=== PATIENT | female | born 2000 | race Caucasian/White ===

== ENCOUNTER 2019-11-20 09:33 | Inpatient (IN) ==
[2019-11-20] MEDS ORDERED: KETOROLAC TROMETHAMINE 15 MG/ML VIAL IV STA (09:44)
[2019-11-20] MEDS ORDERED: SODIUM CHLORIDE 0.9% 1000ML 1,000 ML IV SCH ×2 (09:45→11:15)
[2019-11-20] MEDS ORDERED: PROCHLORPERAZINE 1 ML IV ONE (09:49)
[2019-11-20] MEDS ORDERED: DiphenhydrAMINE HCL 50 MG/ML VIAL IV STA (09:49)
--- NOTE | 2019-11-20 09:56 | Emergency Department Note ---
History of Present Illness General Chief complaint: Headache Stated complaint: HEADACHE Time Seen by Provider: 11/20/19 09:42 History of Present Illness Maximum Pain Intensity: 5 This is a 19-year-old female that presents to the emergency department via private vehicle with complaints of "headache". The patient states that while at work on Sunday she began with a headache. No reported trauma or injury. She then has been sleeping for many parts of the day. There is associated phot ophobia. She has decreased appetite. She also had left-sided flank pain which resolved. She has associated nausea. She denies any pertinent past medical history, surgeries, allergies, trauma, injury, vomiting, chest pain, shortness of breath, fevers. No chills. She had Aleve last night but only took her control today. Discomfort is a 5/10. No dysuria, hematuria or urinary frequency. Home Medications Home Medications Medication Instructions Recorded Confirmed Type Control 1 tab PO QAM 11/20/19 11/20/19 History naproxen sodium [Aleve] 220 mg PO Q12H PRN 11/20/19 11/20/19 History Allergies Allergy/AdvReac Type Severity Reaction Status Date / Time No Known Allergies Allergy Unknown Verified 11/20/19 10:09 LACTOSE FREE FORMULA Allergy Unknown Unknown Uncoded 11/20/19 10:09 Past Med/Surg History Medical History (Updated 11/20/19 @ 15:06 by Wes Christina PA-C) Asthma No pertinent past medical history Surgical History No pertinent past surgical history Social History Preferred Language: Maltese Communication Ability: Effective Herbologist Required: No Beliefs That Will Affect Care: None Current Living Situation: Alone Other Information That Helps Us Care for You: No Feels Safe at Home: Yes Safety Concerns: Feels Safe At This Time Smoking Status: Never smoker Do You Dip or Chew Tobacco: No ; Second Hand Exposure: No ; Tobacco Cessation Education Requested by Patient: No Hx Alcohol Use: No Hx Substance Use: No Review of Systems A total of 10 systems reviewed and were otherwise negative Physical Exam Vital Signs Vital Signs - 24 hr 11/20/19 09:36 11/20/19 11:49 11/20/19 13:10 Temperature 37.2 C Temperature Source Oral Pulse Rate 126 H Pulse Rate [Right Finger] 99 H 97 H Respiratory Rate 18 18 18 Respiratory Effort / Characteristics Non-Labored Spontaneous Non-Labored Spontaneous Respiratory Depth Normal Normal Respiratory Pattern Regular Regular Blood Pressure 120/84 Blood Pressure [Right Arm] 126/81 101/76 Blood Pressure Mean 96 Blood Pressure Mean [Right Arm] 96 84 Pulse Oximetry 96 98 99 Oxygen Delivery Method Room Air Room Air Room Air Sepsis Recent Fever Within 48 Hours No Sepsis New/Unexplained Change in Mental Status No Sepsis Action Taken by Nursing No Action Required VITAL SIGNS - Vital signs and nursing notes were reviewed. Stable and afebrile. She is tachycardic on exam. GENERAL -19-year-old female appearing her stated age who is in no acute di stress. Communicates well with provider and answers questions appropriately. SKIN - Without rashes. HEAD - NC/AT. EYES - PERRL with EOMI bilaterally. Sclera anicteric. Palpebral conjunctiva pink and moist with no injection noted. She is wearing sunglasses. EARS - No deformities of external structures noted on gross examination bilaterally. No pain elicited with palpation of the tragus bilaterally. External auditory canals without discharge or otorrhea. Tympanic membranes pearly baer without retraction or bulging. No fluid or purulent material visualized behind the TM. Handle of malleus, umbo, cone of light, pars tensa/flaccid all easily visualized. NOSE - Midline and without cyanosis. No epistaxis or purulent drainage noted. Septum midline without deviation or septal hematoma noted. MOUTH/OROPHARYNX - Without perioral cyanosis. Buccal mucosa pink and moist and without leukoplakia. Tongue midline with equal elevation of palate bilaterally. No tonsillar hypertrophy, erythema, or exudates noted. Good dentition noted. NECK - Neck with FROM. Supple to palpation. No lymphadenopathy noted. No nuchal rigidity. No meningismus. LUNGS - Chest wall symmetric without accessory muscle use, intercostals retractions, or central cyanosis. Normal vesicular breath sounds CTA B/L. No wheezes, rales, or rhonchi appreciated. CARDIAC -tachycardic and irregular rate with S1/S2. No murmur, rubs, or gallops appreciated. No CVA tenderness. EXTREMITIES - No clubbing or peripheral cyanosis. No pretibial edema present. +5/5 strength noted in UE/LE bilaterally. NEUROLOGIC - Cranial nerves II through XII grossly intact. Sensory intact to light touch throughout. PSYCH - A&Ox3 and cooperates fully with examiner. Pt is very pleasant and interacts well with examiner. Course Administered Medications Discontinued Medications Diphenhydramine HCl (Benadryl) 25 mg IV NOW STA Stop: 11/20/19 09:50 Last Admin: 11/20/19 10:18 Dose: 25 mg Documented by: [id number] Sodium Chloride (Nss 1000ml) 1,000 mls @ 999 mls/hr IV .Q1H1M CORY Stop: 11/20/19 10:45 Last Infusion: 11/20/19 11:28 Dose: 0 mls/hr Documented by: [id number] Admin: 11/20/19 10:17 Dose: 999 mls/hr Documented by: [id number] Prochlorperazine (Compazine) 1 mls @ 1 mls/min IV ONE ONE Stop: 11/20/19 09:50 Last Admin: 11/20/19 10:21 Dose: 1 mls/min Documented by: [id number] Sodium Chloride (Nss 1000ml) 1,000 mls @ 999 mls/hr IV .Q1H1M CORY Stop: 11/20/19 12:15 Last Infusion: 11/20/19 13:06 Dose: 0 mls/hr Documented by: [id number] Admin: 11/20/19 11:48 Dose: 999 mls/hr Documented by: [id number] Ceftriaxone Sodium (Rocephin) 2,000 mg in 70 mls @ 140 mls/hr IV NOW STA Stop: 11/20/19 11:47 Last Infusion: 11/20/19 12:22 Dose: 0 mls/hr Documented by: [id number] Admin: 11/20/19 11:48 Dose: 140 mls/hr Documented by: [id number] Ioversol (Optiray 320 100ml) 94 ml IV ONCE PRN PRN Reason: Interaction Checking Stop: 11/24/19 10:46 Last Admin: 11/20/19 10:48 Dose: 94 ml Documented by: [id number] Ketorolac Tromethamine (Toradol) 15 mg IV NOW STA Stop: 11/20/19 09:45 Last Admin: 11/20/19 10:20 Dose: 15 mg Documented by: [id number] Medical Decision Making Laboratory Data Result diagrams: 11/20/19 10:03 11/20/19 10:03 Lab Results 11/20/19 11/20/19 11/20/19 Range/Units 10:03 10:03 10:03 WBC 23.01 H (4.8-10.8) K/uL RBC 4.48 (4.2-5.4) M/uL Hgb 14.4 (12.0-16.0) g/dL Hct 41.3 (37-47) % MCV 92.2 (80-100) fL MCH 32.1 (25-34) pg MCHC 34.9 (32-36) g/dL RDW Std Deviation 42.1 (36.4-46.3) fL RDW Coeff of Anastasia 12.4 (11.5-14.5) % Plt Count 275 (130-400) K/uL MPV 10.1 (7.4-10.4) fL Immature Gran % (Auto) 0.3 % Neut % (Auto) 77.7 % Lymph % (Auto) 9.9 % [place] % (Auto) 12.0 % Eos % (Auto) 0.0 % Baso % (Auto) 0.1 % Immature Gran # (Auto) 0.07 H (0.00-0.02) K/uL Neut # (Auto) 17.86 H (1.4-6.5) K/uL Lymph # (Auto) 2.28 (1.2-3.4) K/uL [place] # (Auto) 2.76 H (0.11-0.59) K/uL Eos # (Auto) 0.01 (0-0.5) K/uL Baso # (Auto) 0.03 (0-0.2) K/uL Sodium 135 L (136-145) mmol/L Potassium 3.4 L (3.5-5.1) mmol/L Chloride 104 (98-107) mmol/L Carbon Dioxide 25 (21-32) mmol/L Anion Gap 6.0 (3-11) BUN 5 L (7-18) mg/dl Creatinine 0.83 (0.6-1.2) mg/dl Est Cr Clr Drug Dosing 101.7 ml/min Est GFR ( Amer) 116.8 Est GFR (Non-Af Amer) 100.8 BUN/Creatinine Ratio 6.3 L (10-20) Glucose 143 H (70-99) mg/dl Calcium 9.0 (8.5-10.1) mg/dl Total Bilirubin 1.6 H (0.2-1) mg/dl AST 15 (15-37) U/L ALT 21 (12-78) U/L Alkaline Phosphatase 88 (45-117) U/L Total Protein 8.1 (6.4-8.2) gm/dl Albumin 3.8 (3.4-5.0) gm/dl Globulin 4.3 H (2.5-4.0) gm/dl Albumin/Globulin Ratio 0.9 (0.9-2) Urine Color Urine Appearance (Clear) Urine pH (4.5-7.5) Ur Specific [place] (1.000-1.030) Urine Protein (Negative) Urine Glucose (UA) (Negative) Urine Ketones (Negative) Urine Blood (Negative) Urine Nitrite (Negative) Urine Bilirubin (Negative) Urine Urobilinogen (Negative) Ur Leukocyte Esterase (Negative) Urine WBC (Auto) (0-5) /hpf Urine RBC (Auto) (0-4) /hpf U Hyaline Cast (Auto) (0-5) /lpf U Epithel Cells (Auto) (0-5) /lpf Urine Bacteria (Auto) (Negative) POC Ur Test (NEG) Lyme Disease IgG Ab Negative (Negative) Lyme Disease IgM Ab Negative (Negative) Monoscreen Negative (Negative) Influenza Type A (PCR) (Neg) Influenza Type B (PCR) (Neg) 11/20/19 11/20/19 11/20/19 Range/Units 10:03 10:03 10:03 WBC (4.8-10.8) K/uL RBC (4.2-5.4) M/uL Hgb (12.0-16.0) g/dL Hct (37-47) % MCV (80-100) fL MCH (25-34) pg MCHC (32-36) g/dL RDW Std Deviation (36.4-46.3) fL RDW Coeff of Anastasia (11.5-14.5) % Plt Count (130-400) K/uL MPV (7.4-10.4) fL Immature Gran % (Auto) % Neut % (Auto) % Lymph % (Auto) % [place] % (Auto) % Eos % (Auto) % Baso % (Auto) % Immature Gran # (Auto) (0.00-0.02) K/uL Neut # (Auto) (1.4-6.5) K/uL Lymph # (Auto) (1.2-3.4) K/uL [place] # (Auto) (0.11-0.59) K/uL Eos # (Auto) (0-0.5) K/uL Baso # (Auto) (0-0.2) K/uL Sodium (136-145) mmol/L Potassium (3.5-5.1) mmol/L Chloride (98-107) mmol/L Carbon Dioxide (21-32) mmol/L Anion Gap (3-11) BUN (7-18) mg/dl Creatinine (0.6-1.2) mg/dl Est Cr Clr Drug Dosing ml/min Est GFR ( Amer) Est GFR (Non-Af Amer) BUN/Creatinine Ratio (10-20) Glucose (70-99) mg/dl Calcium (8.5-10.1) mg/dl Total Bilirubin (0.2-1) mg/dl AST (15-37) U/L ALT (12-78) U/L Alkaline Phosphatase (45-117) U/L Total Protein (6.4-8.2) gm/dl Albumin (3.4-5.0) gm/dl Globulin (2.5-4.0) gm/dl Albumin/Globulin Ratio (0.9-2) Urine Color [place] Urine Appearance Turbid A (Clear) Urine pH 6.0 (4.5-7.5) Ur Specific [place] 1.021 (1.000-1.030) Urine Protein 1+ H (Negative) Urine Glucose (UA) Negative (Negative) Urine Ketones 2+ H (Negative) Urine Blood Trace H (Negative) Urine Nitrite Positive A (Negative) Urine Bilirubin Negative (Negative) Urine Urobilinogen Positive H (Negative) Ur Leukocyte Esterase 3+ H (Negative) Urine WBC (Auto) >30 H (0-5) /hpf Urine RBC (Auto) 5-10 H (0-4) /hpf U Hyaline Cast (Auto) 1-5 (0-5) /lpf U Epithel Cells (Auto) >30 H (0-5) /lpf Urine Bacteria (Auto) 2+ H (Negative) POC Ur Test NEG (NEG) Lyme Disease IgG Ab (Negative) Lyme Disease IgM Ab (Negative) Monoscreen (Negative) Influenza Type A (PCR) Neg for Influ A (Neg) Influenza Type B (PCR) Neg for Influ B (Neg) Imaging Data Radiologist's Impression: CT head/brain wo con CT DOSE: 638.56 mGycm HISTORY: headache x 3 days, photophobia TECHNIQUE: Multiaxial CT images of the head were performed without the use of intravenous contrast. A dose lowering technique was utilized adhering to the principles of ALARA. Comparison: None. Findings: The paranasal sinuses and mastoid air cells are clear. The calvarium and skull base are intact. The ventricles and sulci are within normal limits. There is no mass, hematoma, midline shift, or acute infarct. Impression: No acute intracranial abnormality. ACT 112: Negative or not required by law. The above report was generated using voice recognition software. It may contain grammatical, syntax or spelling errors. Electronically signed by: Aj Alvarez M.D. 11/20/2019 11:[address] OF THE ABDOMEN AND PELVIS WITH CONTRAST CLINICAL HISTORY: Left flank pain, uti, tachycardia. COMPARISON STUDY: CT of the abdomen and pelvis January 02, 2019. TECHNIQUE: Following IV administration of 94 mL of Optiray-320, axial images of the abdomen and pelvis were obtained from the lung bases to the proximal femurs. Images were reviewed in the axial, sagittal, and coronal planes. IV contrast was administered without complication. Automated exposure control was utilized for the study. A dose lowering technique was utilized adhering to the principles of ALARA. CT DOSE: 633.87 mGycm FINDINGS: Lung bases are unremarkable. No pneumatosis, free air or portal venous gas is present. Note is made of a 2.7 cm ill-defined hypodense focus within the upper pole of the left kidney with mild adjacent infiltration. There is no rim enhancement. There is no hydronephrosis. No urinary calculi are identified. There is no evidence for a bowel obstruction. The liver, spleen, adrenal glands, right kidney and pancreas are normal. A uterine anomaly is suspected, suboptimally assessed by CT. There is a probable bicornuate uterus with left- sided rudimentary horn. IMPRESSION: 1. 2.7 cm ill-defined hypodense focus within the upper pole of the left kidney consistent with pyelonephritis with lobar nephronia. No renal abscess. 2. Suspected uterine anomaly. The findings suggest a bicornuate uterus with left-sided rudimentary horn. ACT 112: Negative or not required by law. Electronically signed by: Osiel Musa M.D. 11/20/2019 11:16 AM MDM Narrative Patient was seen and evaluated as above in room a 12. Review was performed of nursing notes and vital signs. After obtaining a thorough history and physical examination the above work up was performed. She presents to us today with a headache. With the headache, she also had left flank pain for very short period of time 3 days ago but now just a headache. No urinary symptoms. With her presentation it was felt that further evaluation was warranted. A CT scan was obtained of the head which was negative. Labs were also drawn. There is leukocytosis of 23.01 without anemia. There is mild hypokalemia. T bili 1.6. Urinalysis is concerning we positive for UTI. Lyme, mono and flu swab were all negative. At the patient was done a CT scan, the urine resulted and although she had no urinary symptoms, given the reported history of a short period of flank pain 3 days ago on the left it was felt that an abdomen pelvis contrasted CT was warranted. Patient was okay with this order. This revealed a 2.7 cm ill-defined hypodense focus within the upper pole of the left kidney consistent with pyelonephritis with lobar nephronia. No abscess at this time. With this finding, 2 g Rocephin as well as fluids were ordered. While here she was treated with a migraine cocktail prior to the results with tremendous improvement. Given the patient's presentation with elevated heart rate, significant white blood cell count pyelonephritis with nephronia it was felt that further evaluation and management in the inpatient setting would be warranted. Case discussed with the attending physician as well as the hospitalist. Please refer to further documentation regarding her stay. I do not believe that an LP at this time is warranted. I do not suspect meningitis or encephalitis rather believe the headache is likely secondary to dehydration and infection from the pyelonephritis. Case was discussed with the attending physician. GCS 15. In the evaluation and treatment of this patient, the following differential diagnoses were considered: Kidney Stone, STI, pyelonephritis, UTI, meningitis, encephalitis, bladder Cancer, Amongst Others. Impression & Plan Pyelonephritis, Headache Discharge Plan Visit Data *Final* Discharge Date/Time: 11/20/19 14:34 Chief Complaint: Headache Stated Complaint: HEADACHE ED Provider: Cuauhtemoc Rondon ED Midlevel Provider: Wes Christina Discharge Problem: Pyelonephritis, Headache Patient Disposition: Admitted As Inpatient Condition: Good Discharge Instructions Interventions: ED Discharge Assessment Last Done: 11/20/19 14:34
[2019-11-20 10:20] LABS: Appearance Urine Turbid (Clear); Bacteria Urine Automated 2+ (Negative); Blood Urine Trace (Negative); Color Urine Orange; Epithelial Cell Urine Auto >30 /lpf (0-5); Glucose Urine UA Negative (Negative); Ketones Urine 2+ (Negative); Leukocyte Esterase Urine 3+ (Negative); Nitrite Urine Positive (Negative); Protein Urine 1+ (Negative); Specific Gravity Urine 1.021 (1.000-1.030); Urobilinogen Urine Positive (Negative); WBC Urine Automated >30 /hpf (0-5)
[2019-11-20 10:29] LABS: Basophils # (auto) 0.03 K/uL (0-0.2); Basophils % (auto) 0.1 %; Eosinophils # (auto) 0.01 K/uL (0-0.5); Hematocrit (blood only) 41.3 % (37-47); Hemoglobin 14.4 g/dL (12.0-16.0); Immature Granulocytes # (auto) 0.07 K/uL (0.00-0.02); Immature Granulocytes % (auto) 0.3 %; Lymphocytes # (auto) 2.28 K/uL (1.2-3.4); Lymphocytes % (auto) 9.9 %; Mean Corpuscular Hemoglobin 32.1 pg (25-34); Mean Corpuscular Hgb Conc 34.9 g/dL (32-36); Mean Corpuscular Volume 92.2 fL (80-100); Mean Platelet Volume 10.1 fL (7.4-10.4); Monocytes # (auto) 2.76 K/uL (0.11-0.59); Neutrophils # (auto) 17.86 K/uL (1.4-6.5); Neutrophils % (auto) 77.7 %; Platelet Count 275 K/uL (130-400); RDW Coefficient of Variation 12.4 % (11.5-14.5); RDW Standard Deviation 42.1 fL (36.4-46.3); Red Blood Count 4.48 M/uL (4.2-5.4); White Blood Count 23.01 K/uL (4.8-10.8)
[2019-11-20 10:30] LABS: Monotest Negative (Negative)
[2019-11-20 10:32] LABS: Albumin Level 3.8 gm/dl (3.4-5.0); BUN Creatinine Ratio 6.3 (10-20); Creatinine Clr Calc Pharmacy 101.7 ml/min; Est GFR (African American) 116.8; Est GFR (Non-African American) 100.8; Potassium 3.4 mmol/L (3.5-5.1)
[2019-11-20 10:35] LABS: Albumin Globulin Ratio 0.9 (0.9-2); Bilirubin,Total 1.6 mg/dl (0.2-1); Globulin 4.3 gm/dl (2.5-4.0); Total Protein 8.1 gm/dl (6.4-8.2)
[2019-11-20 10:39] LABS: Bilirubin Urine Negative (Negative); Ictotest Urine Negative (Negative)
[2019-11-20] MEDS ORDERED: IOVERSOL 100ml IV PRN (10:47)
[2019-11-20 11:00] LABS: Lyme Ab IgM w/WB Rflx Negative (Negative)
[2019-11-20 11:01] LABS: Lyme Ab IgG w/WB Rflx Negative (Negative)
[2019-11-20 11:04] LABS: Influenza A virus by PCR Neg for Influ A (Neg); Influenza B virus by PCR Neg for Influ B (Neg)
--- NOTE | 2019-11-20 11:06 | CT Scan Report ---
CT head/brain wo con CT DOSE: 638.56 mGycm HISTORY: headache x 3 days, photophobia TECHNIQUE: Multiaxial CT images of the head were performed without the use of intravenous contrast. A dose lowering technique was utilized adhering to the principles of ALARA. Comparison: None. Findings: The paranasal sinuses and mastoid air cells are clear. The calvarium and skull base are int act. The ventricles and sulci are within normal limits. There is no mass, hematoma, midline shift, or acute infarct. Impression: No acute intracranial abnormality. ACT 112: Negative or not required by law. The above report was generated using voice recognition software. It may contain grammatical, syntax or spelling errors. Electronically signed by: Aj Alvarez M.D. 11/20/2019 11:05 AM
--- NOTE | 2019-11-20 11:17 | CT Scan Report ---
CT OF THE ABDOMEN AND PELVIS WITH CONTRAST CLINICAL HISTORY: Left flank pain, uti, tachycardia. COMPARISON STUDY: CT of the abdomen and pelvis January 02, 2019. TECHNIQUE: Following IV administration of 94 mL of Optiray-320, axial images of the abdomen and pelvi s were obtained from the lung bases to the proximal femurs. Images were reviewed in the axial, sagitt al, and coronal planes. IV contrast was administered without complication. Automated exposure contro l was utilized for the study. A dose lowering technique was utilized adhering to the principles of A [place]. CT DOSE: 633.87 mGycm FINDINGS: Lung bases are unremarkable. No pneumatosis, free air or portal venous gas is present. Note is made of a 2.7 cm ill-defined hypodense focus within the upper pole of the left kidney with mild a djacent infiltration. There is no rim enhancement. There is no hydronephrosis. No urinary calculi are identified. There is no evidence for a bowel obstruction. The liver, spleen, adrenal glands, right k idney and pancreas are normal. A uterine anomaly is suspected, suboptimally assessed by CT. There is a probable bicornuate uterus with left-sided rudimentary horn. IMPRESSION: 1. 2.7 cm ill-defined hypodense focus within the upper pole of the left kidney consistent with pyelon ephritis with lobar nephronia. No renal abscess. 2. Suspected uterine anomaly. The findings suggest a bicornuate uterus with left-sided rudimentary ho rn. ACT 112: Negative or not required by law. Electronically signed by: Osiel Musa M.D. 11/20/2019 11:16 AM
[2019-11-20] MEDS ORDERED: cefTRIAXone SODIUM 2,000 MG/70 ML BAG IV STA (11:18)
--- NOTE | 2019-11-20 14:02 | History & Physical Report ---
Date of Service November 20, 2019 Assessment & Plan (1) Pyelonephritis: Patient with pyelonephritis with nephronia as seen on CT scan. Patient was given a Rocephin in the emergency room, will continue this for now pending urine cultures. Patient currently has no signs of infection. Hopefully can identify pathogen next 1-2 days and transition patient over to oral treatment. Monitor leukocytosis. (2) Headache: The patient's headache is likely secondary to her urinary tract infection. As this is to resolve completely. Imaging was unremarkable. We will continue to monitor and treat as needed but no reason to pursue further diagnostics for this. History of Present Illness Primary Care Provider: NO PCP This is a 19-year-old female without past medical history presents today complaining of severe headache. Patient is a decent historian. Patient apparently there was a headache 48 hours ago. It is very severe and accompanied by photophobia. She has had a poor appetite. She did note some left-sided flank pain when it started but this is since resolved. She denies any fevers or chills. The headaches continued over the course of those 2 days. She did take Aleve at home but did not find any relief with this. Patient denies any dysuria, hematuria, urinary frequency, or really any other complaints. She also denies fevers or chills. The time of evaluation, the patient tells me her headache is completely resolved. I do note that she was given Reglan and Toradol which likely help. Patient is denying any flank pain for me and otherwise feels well. We did briefly reviewed the CT scan results and patient is willing to stay overnight for further treatment of a urinary tract infection and possible pyelonephritis. Allergies Allergy/AdvReac Type Severity Reaction Status Date / Time No Known Allergies Allergy Unknown Verified 11/20/19 10:09 LACTOSE FREE FORMULA Allergy Unknown Unknown Uncoded 11/20/19 10:09 Home Medications Home Medications Medication Instructions Recorded Confirmed Type Control 1 tab PO QAM 11/20/19 11/20/19 History naproxen sodium [Aleve] 220 mg PO Q12H PRN 11/20/19 11/20/19 History Past Med/Surg History Medical History (Updated 11/20/19 @ 13:59 by Titi Pabon DO) Asthma No pertinent past medical history Surgical History No pertinent past surgical history Social History Preferred Language: [place]raini Feels Safe at Home: Yes Smoking Status: Never smoker Review of Systems Constitutional: no fever, no chills, no weakness, no weight loss and no weight gain Eyes: as per Subjective / HPI Respiratory: no cough, no chest congestion, no dyspnea and no dyspnea on exertion Cardiovascular: no chest pain, no orthopnea, no palpitations, no lightheadedness and no edema Gastrointestinal: no abdominal pain, no nausea, no vomiting, no constipation and no diarrhea/loose stools Genitourinary: no dysuria, no difficulty urinating, no urinary frequency, no urinary hesitancy, no urinary urgency and no flank pain Musculoskeletal: no back pain, no neck pain, no joint pain, no stiffness and no myalgia Integumentary: no rash Neurologic: + headache(s); no gait abnormality, no unsteadiness, no falls and no generalized weakness Results & Data Vital Signs (Past 12 Hours) Vital Signs Temp Pulse Pulse Resp BP BP Pulse Ox 11/20/19 13:10 97 H 18 101/76 99 11/20/19 11:49 99 H 18 126/81 98 11/20/19 09:36 37.2 C 126 H 18 120/84 96 Laboratory Results WBCs of 23, hemoglobin 14.4, hematocrit 41.3, platelet count 275. Sodium 135, potassium 3.4, chloride 104, carbon dioxide 25, BUN 5 with creatinine 0.83. Glucose is 143. Total bilirubin is 1.6 with LFTs normal. UA shows turbid orange urine with 2+ ketones trace blood positive nitrates, 3+ leuk esterases, over 30 WBCs with only 5-10 RBCs. Also 2+ bacteria Diagnostic Findings CT head/brain wo con CT DOSE: 638.56 mGycm HISTORY: headache x 3 days, photophobia TECHNIQUE: Multiaxial CT images of the head were performed without the use of intravenous contrast. A dose lowering technique was utilized adhering to the principles of ALARA. Comparison: None. Findings: The paranasal sinuses and mastoid air cells are clear. The calvarium and skull base are intact. The ventricles and sulci are within normal limits. There is no mass, hematoma, midline shift, or acute infarct. Impression: No acute intracranial abnormality. --- CT OF THE ABDOMEN AND PELVIS WITH CONTRAST CLINICAL HISTORY: Left flank pain, uti, tachycardia. COMPARISON STUDY: CT of the abdomen and pelvis January 02, 2019. TECHNIQUE: Following IV administration of 94 mL of Optiray-320, axial images of the abdomen and pelvis were obtained from the lung bases to the proximal femurs. Images were reviewed in the axial, sagittal, and coronal planes. IV contrast was administered without complication. Automated exposure control was utilized for the study. A dose lowering technique was utilized adhering to the principles of ALARA. CT DOSE: 633.87 mGycm FINDINGS: Lung bases are unremarkable. No pneumatosis, free air or portal venous gas is present. Note is made of a 2.7 cm ill-defined hypodense focus within the upper pole of the left kidney with mild adjacent infiltration. There is no rim enhancement. There is no hydronephrosis. No urinary calculi are identified. There is no evidence for a bowel obstruction. The liver, spleen, adrenal glands, right kidney and pancreas are normal. A uterine anomaly is suspected, suboptimally assessed by CT. There is a probable bicornuate uterus with left- sided rudimentary horn. IMPRESSION: 1. 2.7 cm ill-defined hypodense focus within the upper pole of the left kidney consistent with pyelonephritis with lobar nephronia. No renal abscess. 2. Suspected uterine anomaly. The findings suggest a bicornuate uterus with left-sided rudimentary horn. PG Care Time/CCT Total # of Minutes Spent Total Time Spent with Patient: Total time spent is greater than 50% in coordination of care (as documented) at patient's floor/unit and/or counseling patient: Coding Level of Care Code 62811 Initial Inpt Care Lvl 3 Diagnoses Pyelonephritis N12 Headache R51
[2019-11-20] MEDS ORDERED: ZOLPIDEM TARTRATE 5 MG TAB PO PRN (14:52)
[2019-11-20] MEDS ORDERED: ACETAMINOPHEN 325 MG TAB PO PRN (14:52)
[2019-11-20] MEDS ORDERED: ONDANSETRON INJ 2 MG/ML 2 ML VIAL IV PRN (14:52)
[2019-11-20] MEDS ORDERED: NAPROXEN 250 MG TAB PO PRN (14:55)
[2019-11-21 05:58] LABS: Basophils # (auto) 0.02 K/uL (0-0.2); Basophils % (auto) 0.1 %; Eosinophils # (auto) 0.03 K/uL (0-0.5); Eosinophils % (auto) 0.2 %; Hemoglobin 13.4 g/dL (12.0-16.0); Immature Granulocytes # (auto) 0.04 K/uL (0.00-0.02); Immature Granulocytes % (auto) 0.2 %; Lymphocytes # (auto) 2.89 K/uL (1.2-3.4); Lymphocytes % (auto) 15.6 %; Mean Corpuscular Hemoglobin 31.2 pg (25-34); Mean Corpuscular Hgb Conc 34.4 g/dL (32-36); Mean Corpuscular Volume 90.7 fL (80-100); Mean Platelet Volume 10.2 fL (7.4-10.4); Monocytes # (auto) 1.87 K/uL (0.11-0.59); Monocytes % (auto) 10.1 %; Neutrophils # (auto) 13.65 K/uL (1.4-6.5); Neutrophils % (auto) 73.8 %; Platelet Count 252 K/uL (130-400); RDW Coefficient of Variation 12.5 % (11.5-14.5); RDW Standard Deviation 41.5 fL (36.4-46.3)
[2019-11-21 06:27] LABS: BUN Creatinine Ratio 8.5 (10-20); Blood Urea Nitrogen 5 mg/dl (7-18); Calcium 8.7 mg/dl (8.5-10.1); Carbon Dioxide 22 mmol/L (21-32); Chloride 109 mmol/L (98-107); Creatinine Clr Calc Pharmacy 153.4 ml/min; Est GFR (African American) > 150.0; Est GFR (Non-African American) 134.1; Glucose 93 mg/dl (70-99); Magnesium 2.1 mg/dl (1.8-2.4); Potassium 3.7 mmol/L (3.5-5.1); Sodium 138 mmol/L (136-145)
[2019-11-21] MEDS ORDERED: cefTRIAXone SODIUM 1,000 MG/50 ML BAG IV SCH (11:00)
[2019-11-21] MEDS ORDERED: LORazepam 0.5 MG TAB PO ONE (16:20)
--- NOTE | 2019-11-21 16:31 | Hospitalist Progress Note ---
Date of Service November 21, 2019 Assessment & Plan (1) Pyelonephritis: Patient with pyelonephritis with nephronia as seen on CT scan. Continue Rocephin, E. Coli on urine culture, sensitivities pending, will transition to oral antibiotics when resulted (2) Headache: Resolved (3) Anxiety: Acute anxiety per nursing Lorazepam x 1 dose (4) DVT prophylaxis: Ambulatory, low risk for VTE, no chemoprophylaxis needed Admission and Anticipated Discharge Date Admission Date: November 20, 2019 Subjective Ms. Mittal is feeling much better today, headache has been resolved since the ED. No pain or dysuria. ROS Constitutional: no chills, aches, sweats or fever Respiratory: no sob,cough, sputum, or wheezing Cardiac: no chest pain, palpitations, edema, orthopnea or lightheadedness GI: no abdominal pain, nausea, vomiting, diarrhea or constipation : no dysuria or hesitancy Extremities: no joint pain or weakness Skin: no rash All other systems reviewed and negative Physical Exam Physical Exam: General: no distress Eyes: normal inspection, PERLL Respiratory: chest non tender, clear to auscultation, normal breath sounds, no respiratory distress, no accessory muscle use Cardiac: regular rate and rhythm, no rub or gallop, no murmur, no edema, no jvd GI/: active bowel sounds, no abd pain or tenderness, soft, non distended Extremities: normal range of motion, normal strength, non tender Neuro/Psych: alert and oriented x 3, normal mood and affect Skin: normal color, dry Results & Data ([facility]) Vital Signs (Past 12 Hours) Vital Signs Temp Pulse Resp BP Pulse Ox 11/21/19 15:36 36.9 C 87 18 114/79 99 11/21/19 07:29 36.8 C 86 19 95/63 L 98 PG Care Time/CCT Total # of Minutes Spent Total Time Spent with Patient: Total time spent is greater than 50% in coordination of care (as documented) at patient's floor/unit and/or counseling patient: Coding Level of Care Code 19845 Subseq Hosp Care Lvl 2 Diagnoses Pyelonephritis N12 Headache R51 Anxiety F41.9 DVT prophylaxis Z29.9
[2019-11-21 23:11] VITALS: O2SAT 98
[2019-11-22 08:15] VITALS: PULSE 59; TEMP 99
[2019-11-22] MEDS ORDERED: cefUROXime axetil 500 MG TAB PO SCH (09:00)
--- NOTE | 2019-11-22 09:02 | Discharge Summary ---
Date of Service November 22, 2019 Admission HPI Per Admitting Provider This is a 19-year-old female without past medical history presents today complaining of severe headache. Patient is a decent historian. Patient apparently there was a headache 48 hours ago. It is very severe and accompanied by photophobia. She has had a poor appetite. She did note some left-sided flank pain when it started but this is since resolved. She denies any fevers or chills. The headaches continued over the course of those 2 days. She did take Aleve at home but did not find any relief with this. Patient denies any dysuria, hematuria, urinary frequency, or really any other complaints. She also denies fevers or chills. The time of evaluation, the patient tells me her headache is completely resolved. I do note that she was given Reglan and Toradol which likely help. Patient is denying any flank pain for me and otherwise feels well. We did briefly reviewed the CT scan results and patient is willing to stay overnight for further treatment of a urinary tract infection and possible pyelonephritis. Principal Diagnosis Pyelonephritis Discharge Exam Constitutional WD/WN, vitals as above Respiratory normal respiratory effort, lungs clear to auscultation Cardiovascular RRR, no murmur, no edema Gastrointestinal (Abdomen) Inspection/Auscultation: abdomen normal to inspection and normal bowel sounds; abdomen not distended Percussion/Palpation: abdomen soft; abdomen nontender Musculoskeletal no cyanosis or clubbing, extremities motor strength 5/5 Skin no rashes, warm and dry Neurologic moves all extremities and awake Psychiatric A+Ox3, euthymic affect Discharge Data Allergies Allergy/AdvReac Type Severity Reaction Status Date / Time No Known Allergies Allergy Unknown Verified 11/20/19 10:09 LACTOSE FREE FORMULA Allergy Unknown Unknown Uncoded 11/20/19 10:09 Consultations 11/20/19 13:44 ED Decision to Admit Stat Ordered Studies 11/20/19 09:56 CT head/brain wo con Stat 11/20/19 10:42 CT abd pelvis IV con only Stat Hospital Course (1) Pyelonephritis: Patient with pyelonephritis with nephronia as seen on CT scan. Given IV Rocephin inpatient - will transition to po Cefuroxime per sensitivities - E. Coli on urine culture. Will treat for total of 2 weeks. Will avoid having her follow up with her pcp for now to keep her from having to go to the pcp office in the current COVID pandemic. Educated her on s/s that would warrant a call to her pcp or a return to the Emergency Room and she verbalized understanding (2) Headache: Resolved (3) Anxiety: Acute anxiety per nursing Lorazepam x 1 dose which patient refused - anxiety resolved today (4) Hyperbilirubinemia: Biliruben 1.6 on 11/19, now resolved, likely an acute phase reactant. No sign of liver or gallbladder changes on CT A/P. No right upper quadrant pain (5) DVT prophylaxis: Ambulatory, low risk for VTE, no chemoprophylaxis needed Total Time Total Time Spent Total Time Spent (In Minutes): greater than 30 minutes Discharge Plan Discharge Items Patient Disposition: Home - Self-Care Reason For Visit: PYELO Discharge Diagnosis: Pyelonephritis Condition on Discharge: Good Activity: Resume your previous activity Activity Comment: gradually as tolerated Non-emergency contact: Primary Care Provider Call non-emergency contact if: you have any medication questions, your symptoms worsen, your pain is worsening and you have a fever Follow-up/Referrals: PCP,NO [Primary Care Provider] - (No need for pcp follow up) Diet: Regular Addtl Attending Provider Instructions: You will go home with oral antibiotics to complete a 2 week regimen for kidney infection. If you begin to feel worse, are running a fever, have flank pain or pain with urination, nausea or vomiting, you should call your doctor right away or return to the emergency room. Pending Studies at Discharge: No Stand-Alone Forms: [facility], Work/School Release (Inpt), Smoking Cessation Medications and DC Order Prescriptions: New cefuroxime axetil 500 mg Tablet 500 mg PO BID Qty: 23 RF: 0 Continued naproxen sodium [Aleve] 220 mg Tablet 220 mg PO Q12H PRN (Reason: Pain) RF: 0 Control 1 tab PO QAM RF: 0 Discharge Orders: Discharge Order (Routine); Ordered 11/22/19 Ordered By: Ruba Buitrago Admission Data Admit Date/Time: 11/20/19 14:05 Attending Provider: Hansel Brito Admit Provider: Titi Pabon Primary Care Provider: PCP,NO Other Providers: Hansel Brito ; Titi Pabon Other Interventions: Discharge Summary Assessment (RN) Last Done: 11/22/19 09:57 DC Date/Time DO NOT enter until pt leaves facility: 11/22/19 10:21 Supervising Physician Co-Signing Physician Notes I supervised Ruba Buitrago NP on this patient's care. I examined the patient today independently of her. I discussed the plan of care with her with the plan being as written in her note except for any following changes/exceptions: None. No major concerns today. Symptoms improved. No fever in > 24 hours. WBC was downtrending. Sensitivities back this morning. Will discharge on 14-d course of abx per sensitivities. Coding Level of Care Code D/C Day Management >30 mins Diagnoses Pyelonephritis N12 Headache R51 Anxiety F41.9 Hyperbilirubinemia E80.6 DVT prophylaxis Z29.9
[2019-11-22 09:07] LABS: Albumin Level 3.4 gm/dl (3.4-5.0); Bilirubin Direct 0.2 mg/dl (0-0.2); Bilirubin,Total 0.6 mg/dl (0.2-1)
[2019-11-22 09:58] VITALS: BP 114/79
== END 2019-11-22 10:21 | disposition home or self-care (01) | DRG 690 ==
LOC: ED 09:33 → 4W 14:05 → SUATTDRO 14:05 → 4W 14:34